=== PATIENT | male | born 1955 | race Caucasian/White ===

== ENCOUNTER → 2016-09-25 | Outpatient (CLI) | payer BC ==
--- NOTE | 2016-09-25 14:20 | PCVCIMAG ---
EXAM: BILATERAL SUPERFICIAL VENOUS DUPLEX INDICATION: Leg pain and swelling. FINDINGS: Right leg: No thrombus in the common femoral, main femoral, or popliteal veins. These veins are compressible. Right Great Saphenous Vein: At the saphenofemoral junction the diameter is 9.2 mm, in the mid thigh it is 6.2 mm, and in the calf it is 6.0 mm. There is significant venous insufficiency/reflux throughout. Venous insufficiency/reflux duration is 1.7 seconds. Right Small Saphenous Vein: At the saphenopopliteal junction the diameter is 3.2 mm, and in the calf it is 3.9 mm. There is not significant venous insufficiency/reflux throughout. Venous insufficiency/reflux duration is 0.3 seconds. There is not a cranial extension present. Left leg: No thrombus in the common femoral, main femoral, or popliteal veins. These veins are compressible. Left Great Saphenous Vein: At the saphenofemoral junction the diameter is 8.2 mm, in the mid thigh it is 6.5 mm, and in the calf it is 6.2 mm. There is significant venous insufficiency/reflux throughout. Venous insufficiency/reflux duration is 3.4 seconds. Left Small Saphenous Vein: At the saphenopopliteal junction the diameter is 4.5 mm, and in the calf it is 4.1 mm. There is not significant venous insufficiency/reflux throughout. Venous insufficiency/reflux duration is 0 seconds. There is not a cranial extension present. IMPRESSION: Right Great Saphenous Vein: Significant venous insufficiency/reflux is present as noted above. Right Small Saphenous Vein: No significant venous insufficiency/reflux is present as noted above. Left Great Saphenous Vein: Significant venous insufficiency/reflux is present as noted above. Left Small Saphenous Vein: No significant venous insufficiency/reflux is present as noted above. LOC:[id number]
== END | disposition home or self-care (01) ==
LOC: PCVCIMAG 12:29
PROVIDERS: ATTEND Nuclear Medicine Nuclear Cardiology
DX: I87.2 Venous insufficiency (chronic) (peripheral) (principal); I87.323 Chronic venous hypertension (idiopathic) with inflammation of bilateral lower extremity; M19.90 Unspecified osteoarthritis, unspecified site; I10 Essential (primary) hypertension; E78.00 Pure hypercholesterolemia, unspecified; Z79.899 Other long term (current) drug therapy; Z88.7 Allergy status to serum and vaccine
CPT/HCPCS: 93970

== ENCOUNTER → 2016-09-29 | Outpatient (CLI) | payer BC ==
--- NOTE | 2016-09-29 15:33 | PCVCINTER ---
EXAM: 1. INTRAVASCULAR ULTRASOUND OF THE INFERIOR VENA CAVA 2. INTRAVASCULAR ULTRASOUND OF THE RIGHT COMMON AND EXTERNAL ILIAC AND COMMON FEMORAL VEINS 3. INTRAVASCULAR ULTRASOUND OF THE LEFT COMMON AND EXTERNAL ILIAC AND COMMON FEMORAL VEINS 4. RIGHT COMMON ILIAC VEIN STENT PLACEMENT 5. RIGHT EXTERNAL ILIAC VEIN STENT PLACEMENT 6. LEFT COMMON ILIAC VEIN STENT PLACEMENT 7. LEFT EXTERNAL ILIAC VEIN STENT PLACEMENT INDICATION: Iliofemoral venous obstruction. Chronic Venous Insufficiency Class 4a. Leg pain and swelling. Failed conservative therapy including medical grade compression stockings for at least 3 months. Venous hypertension chronic. PROCEDURE: Procedure and risks of IVC and ileofemoral venography and intravascular ultrasound, and venous stent placement as appropriate including bleeding, infection, venous thrombosis, stent migration/thrombosis, contrast-induced nephropathy requiring dialysis, stroke, and were discussed with the patient and consent obtained. Patient was given IV antibiotics. The patient's right neck and chest was prepped and draped in the normal sterile fashion. IV conscious sedation was used throughout the procedure with appropriate monitoring. Ultrasound was used to interrogate the neck and showed the internal jugular vein to be patent. A spot ultrasound image of the internal jugular vein was saved. Under ultrasound guidance access into the right internal jugular vein was obtained and an 8F sheath was placed to the level of the lower IVC. Catheter was placed into the lower IVC and IVC cavogram performed. Catheter was placed to the level of the right common femoral vein and right iliofemoral venogram obtained. Catheter was placed to the level of the left common femoral vein and left iliofemoral venogram was obtained. The 8 [place] intravascular ultrasound catheter was then placed to the level of the right common femoral vein and intravascular ultrasound evaluation of the right common femoral, right external iliac, and right common iliac veins was accomplished in a pull-back fashion. The 8 [place] intravascular ultrasound catheter was then placed to the level of the left common femoral vein and intravascular ultrasound evaluation of the left common femoral, left external iliac, and left common iliac veins was accomplished in a pull-back fashion. Intravascular ultrasound evaluation of the inferior vena cava was then accomplished in a pullback fashion. Stent placement across the area of eccentric compression in the left external iliac vein was performed with a 20 mm Wallstent with subsequent dilatation to 16 mm. Stent placement across the area of extrinsic compression in the right common iliac vein was accomplished with a 20 mm Wallstent was subsequent dilatation up to 16 mm. Stent placement across the area of extrinsic compression in the left external iliac vein was accomplished with a 20 x 80 mm wall stent with subsequent dilatation to 16 mm. Stent placement across the area of extrinsic compression in the left common iliac vein stent was accomplished with a 22 x 70 mm wall stent with subsequent dilatation to this 18 mm. Follow-up venography and intravascular ultrasound was performed. Sheath was removed and hemostasis obtained using manual pressure. FINDINGS: IVC INTRAVASCULAR ULTRASOUND: Normal vessel: 11.3 x 21.0 mm. Area = 173.7 sq. mm. RIGHT COMMON ILIAC VEIN INTRAVASCULAR ULTRASOUND: Normal vessel: 12.4 x 21.4 mm. Area = 192.6 sq. mm. Minimum vessel diameter: 3.1 x 8.8 mm. Area = 25.4 sq. mm. Post-Intervention diameter: 15.1 x 16.0 mm. Area = 191.1 sq. mm. RIGHT EXTERNAL ILIAC VEIN INTRAVASCULAR ULTRASOUND: Normal vessel: 6.9 x 14.1 mm. Area = 87.2 sq. mm. Minimum vessel diameter: 2.7 x 8.2 mm. Area = 19.3 sq. mm. Post-Intervention diameter: 14.6 x 16.0 mm. Area = 182.5 sq. mm. RIGHT COMMON FEMORAL VEIN INTRAVASCULAR ULTRASOUND: Normal vessel: 13.5 x 18.2 mm. Area = 206.3 sq. mm. LEFT COMMON ILIAC VEIN INTRAVASCULAR ULTRASOUND: Normal vessel: 11.1 x 17.5 mm. Area = 139.1 sq. mm. Minimum vessel diameter: 7.2 x 11.4 mm. Area = 59.5 sq. mm. Post-Intervention diameter: 11.9 x 15.1 mm. Area = 149.6 sq. mm. LEFT EXTERNAL ILIAC VEIN INTRAVASCULAR ULTRASOUND: Normal vessel: 7.3 x 20.5 mm. Area = 125.3 sq. mm. Minimum vessel diameter: 6.7 x 10.4 mm. Area = 54.2 sq. mm. Post-Intervention diameter: 14.0 x 16.4 mm. Area = 171.8 sq. mm. LEFT COMMON FEMORAL VEIN INTRAVASCULAR ULTRASOUND: Normal vessel: 13.7 x 18.3 mm. Area = 194.0 sq. mm. VENOGRAPHY: INFERIOR VENA CAVA: Vessel is patent without significant stenosis, scarring, or extrinsic compression. RIGHT COMMON ILIAC VEIN: Moderately severe extrinsic compression is flow-limiting. RIGHT EXTERNAL ILIAC VEIN: Severe extrinsic compression is flow-limiting. RIGHT COMMON FEMORAL VEIN: Vessel is patent without significant stenosis, scarring, or extrinsic compression. LEFT COMMON ILIAC VEIN: Moderately severe extrinsic compression is flow-limiting. LEFT EXTERNAL ILIAC VEIN: Severe extrinsic compression is flow-limiting. LEFT COMMON FEMORAL VEIN: Vessel is patent without significant stenosis, scar, or extensive compression. IMPRESSION: Indication hemodynamically significant extrinsic compression is noted in the right and left common and external iliac veins as detailed above. These were treated with stent placements with the right and left common and external iliac veins being widely patent at the conclusion of the procedure with good position of the stents. The inferior vena cava is patent as are the right and left common femoral veins. Patient was instructed to be maintained on aspirin and Plavix daily. We will follow-up with the patient in 2 months regarding his progress. LOC:[id number]
== END | disposition home or self-care (01) ==
LOC: PCVCINTER 07:14
PROVIDERS: ATTEND Nuclear Medicine Nuclear Cardiology
DX: I87.1 Compression of vein (principal); I87.2 Venous insufficiency (chronic) (peripheral); I87.309 Chronic venous hypertension (idiopathic) without complications of unspecified lower extremity
CPT/HCPCS: 36012; 37238; 37239; 37252; 37253; 75822; 75825; 76937; 99152; 99153; C1725; C1751; C1753; C1769; C1876; C1894

== ENCOUNTER → 2016-12-11 | Outpatient (CLI) | payer BC ==
--- NOTE | 2016-12-11 10:30 | PCVCIMAG ---
EXAM: BILATERAL SUPERFICIAL VENOUS DUPLEX INDICATION: Leg pain and swelling. FINDINGS: Right leg: No thrombus in the common femoral, main femoral, or popliteal veins. These veins are compressible. Right Great Saphenous Vein: At the saphenofemoral junction the diameter is 10.0 mm, in the mid thigh it is 3.6 mm, and in the calf it is 4.0 mm. There is significant venous insufficiency/reflux throughout. Venous insufficiency/reflux duration is 3.3 seconds. Right Small Saphenous Vein: At the saphenopopliteal junction the diameter is 4.7 mm, and in the calf it is 4.3 mm. There is not significant venous insufficiency/reflux throughout. Venous insufficiency/reflux duration is 0 seconds. There is not a cranial extension present. Left leg: No thrombus in the common femoral, main femoral, or popliteal veins. These veins are compressible. Left Great Saphenous Vein: At the saphenofemoral junction the diameter is 8.7 mm, in the mid thigh it is 4.3 mm, and in the calf it is 5.2 mm. There is not significant venous insufficiency/reflux throughout. Venous insufficiency/reflux duration is 0 seconds. Left Small Saphenous Vein: At the saphenopopliteal junction the diameter is 4.3 mm, and in the calf it is 2.9 mm. There is not significant venous insufficiency/reflux throughout. Venous insufficiency/reflux duration is 0 seconds. There is not a cranial extension present. IMPRESSION: Right Great Saphenous Vein: Significant venous insufficiency/reflux is present as noted above. Note is made of vein is somewhat small in caliber. Right Small Saphenous Vein: No significant venous insufficiency/reflux is present as noted above. Left Great Saphenous Vein: No significant venous insufficiency/reflux is present as noted above. Left Small Saphenous Vein: No significant venous insufficiency/reflux is present as noted above. LOC:[id number]
--- NOTE | 2016-12-11 10:34 | PCVCIMAG ---
EXAM: VENOUS DUPLEX OF THE INFERIOR VENA CAVA AND BILATERAL ILIAC VEINS INDICATION: Previous bilateral iliac vein stent placements for extrinsic compression. Venous stenosis. FINDINGS: The inferior vena cava is patent where visualized. The right and left common and external iliac veins are patent with phasic flow waveforms. Previous bilateral iliac vein stents maintaining satisfactory patency. IMPRESSION: IVC and bilateral iliac veins are patent. LOC:[id number]
== END | disposition home or self-care (01) ==
LOC: PCVCIMAG 08:16
PROVIDERS: ATTEND Nuclear Medicine Nuclear Cardiology
DX: I87.2 Venous insufficiency (chronic) (peripheral) (principal); I87.1 Compression of vein; I87.323 Chronic venous hypertension (idiopathic) with inflammation of bilateral lower extremity; I10 Essential (primary) hypertension; E78.5 Hyperlipidemia, unspecified; M79.604 Pain in right leg; M79.605 Pain in left leg; M79.89 Other specified soft tissue disorders
CPT/HCPCS: 93970; 93976; G0463